=== PATIENT | female | born 1970 | race Caucasian/White ===

== ENCOUNTER 2018-08-15 08:11 | Day surgery (SDC) | payer MEDICAID ==
[2018-08-15] VITALS (12 sets, daily range): BP systolic 91–141; BP diastolic 49–89; PULSE 60–88; RESP 12–23; Ht 157.5 cm; Wt 68.1 kg
[~2018-08-15] VITALS: Ht 157.5 cm; Wt 68.1 kg
[~2018-08-15 08:11] MED LIST: ACETAMINOPHEN 500 MG TAB PO ONE; CEFAZOLIN 2 GM/50 ML (PMX) 50 ML IVPB SCH; DESFLURANE 15 MIN ONE; LIDOCAINE 2% (SDV) 5 ML INJ ONE; SOD CHLORIDE 0.9% 1,000 ML IV ONE
--- NOTE | 2018-08-15 10:11 | PREAC ---
Date/Time of Note Date/Time of Note DATE: 08/15/18 TIME: 10:11 Anesthesia Eval and Record Evaluation Time Pre-Procedure Interview DATE: 08/15/18 TIME: 10:11 Age 48 Sex female NPO: 8 hrs Preoperative diagnosis L breast mass Planned procedure L breast mass excision Past Medical History Past Medical History: None Surgery & Anesthesia Issues No known issue Meds Anticoagulation: No Beta Abel within 24 hr: No Reason Beta Abel not given: Pt. not on B-Abel No Active Prescriptions or Reported Meds Current Medications Cefazolin Sodium/ Dextrose 50 ml @ 100 mls/hr PRE-OP IVPB ; Start 08/15/18 at 06:00; Stop 08/15/18 at 15:00 Sodium Chloride 1,000 ml @ 75 mls/hr [id number] ONCE IV ; Start 08/15/18 at 06:00; Stop 08/15/18 at 19:19 Meds reviewed: Yes Allergies Coded Allergies: No Known Allergy (Unverified , 08/15/18) Allergies Reviewed: Yes Labs/Studies Labs Reviewed: Reviewed by anesthesiologist test: Negative Pre-procedure Exam Airway: Adequate mouth opening, Adequate thyromental dist Mallampati: Mallampati II Teeth: Normal Lung: Normal Heart: Normal ASA Physical Status ASA physical status: 1 Emergency: None Planned Anesthetic General/MAC: LMA Pre-operative Attestations Prior to commencing anesthesia and surgery, the patient was re-evaluated, there was verification of: *The patient's identity *The results of appropriate recent lab work and preoperative vital signs *The above evaluation not changing prior to induction *Anesthetic plan, risk benefits, alternative and complications discussed with patient/family; questions answered; patient/family understands, accepts and wishes to proceed. Financial Advisor Trainee used CARLTON BAHENA August 15, 2018 10:11
[2018-08-15] MEDS ORDERED: FENTAnyl 50 MCG/ML VIAL IV PRN ×2 (10:30)
[2018-08-15] MEDS ORDERED: DIPHENHYDRAMINE 50 MG INJ IV PRN (10:30)
[2018-08-15] MEDS ORDERED: OXYCODONE/ACETAMINOPHEN (5/325) TAB PO PRN ×2 (10:30)
[2018-08-15] MEDS ORDERED: morphine (1 MG/ML) 10ML SYRINGE IV PRN ×2 (10:30)
[2018-08-15] MEDS ORDERED: MEPERIDINE 25 MG INJ IV PRN (10:30)
[2018-08-15] MEDS ORDERED: ONDANSETRON 4 MG INJ IV PRN (10:30)
[2018-08-15] MEDS ORDERED: LABETALOL HCL 20MG INJ IV PRN (10:30)
[2018-08-15] MEDS ORDERED: ALBUTEROL 0.083% (NEB) 2.5 MG/3 ML AMP HHN PRN (10:30)
[2018-08-15] MEDS ORDERED: HYDROmorphONE 1 MG/5 ML IV SYRINGE IV PRN ×3 (10:30)
[2018-08-15] MEDS ORDERED: FAMOTIDINE 20 MG INJ ONE (11:02)
[2018-08-15] MEDS ORDERED: MIDAZOLAM 1 MG/ML 2 ML INJ ONE (11:02)
[2018-08-15] MEDS ORDERED: FENTAnyl 50 MCG/ML VIAL ONE (11:02)
[2018-08-15] MEDS ORDERED: PROPOFOL 40 ML ONE (11:02)
[2018-08-15] MEDS ORDERED: CEFAZOLIN 1 GM INJ ONE (11:03)
[2018-08-15] MEDS ORDERED: ONDANSETRON 4 MG INJ ONE (11:03)
--- NOTE | 2018-08-15 12:17 | SIPON ---
Date/Time of Note Date/Time of Note DATE: 08/15/18 TIME: 12:15 Operative Report Preoperative Diagnosis Left breast lesion Postoperative Diagnosis Same Operation/Procedure Performed Excision of left breast lesion with local skin flap advancement closure Surgeon see signature line bilingual administrative assistant Dr Garcia Anesthesia: general Estimated blood loss: 0 - 10 ml's Transfusion Required none Specimen Left breast lesion Grafts/Implants none Complications none DANNY LUCAS MD August 15, 2018 12:17
--- NOTE | 2018-08-15 12:29 | PAC ---
Date/Time of Note Date/Time of Note DATE: 08/15/18 TIME: 12:28 Post-Anesthesia Notes Post-Anesthesia Note Last documented vital signs Vital Signs Date Temp Pulse Resp B/P (MAP) Pulse Ox O2 O2 Flow FiO2 Time Delivery Rate 08/15/18 98.1 12:26 08/15/18 98.1 68 68 16 17 140/87 99 96 Room 10:40 1223 (104) 95/ Air face 51 mask 4L Activity: WNL Respiratory function: WNL Cardiovascular function: WNL Mental status: Baseline Pain reasonably controlled: Yes Hydration appropriate: Yes Nausea/Vomiting absent: Yes CARLTON BAHENA August 15, 2018 12:29
--- NOTE | 2018-08-15 16:32 | OPR ---
DATE OF OPERATION: 08/15/2018 PREOPERATIVE DIAGNOSIS: Left breast lesion. POSTOPERATIVE DIAGNOSIS: Left breast lesion. OPERATION PERFORMED: Excisional biopsy of left breast lesion, local skin flap advancement closure. ANESTHESIA: General. ANESTHESIOLOGIST: Nurse hair designer, Odilia Ibarra. SURGEON: Marcelino Arreola MD CONSERVATION COORDINATOR: Abhijit Garcia MD INDICATIONS FOR PROCEDURE: The patient is a 48-year-old female who presented with enlarging mass in her left breast with overlying skin changes. She requested excision. She consented and was schedule d for surgery. DESCRIPTION OF PROCEDURE: The patient was brought to the operating theater, placed under general ane sthesia. The left breast was prepped and draped in usual sterile fashion. The lesion was approximat luigi at the 6 o'clock location, approximately 3-4 cm from the nipple-areolar border. An elliptical in cision was made widely around it with 15 blade scalpel including a significant portion of skin. The subcutaneous tissue was then dissected with cautery. The lesion was elevated and transected from the surrounding breast parenchyma. It was removed and sent for pathologic analysis. The wound was irri gated. Residual bleeding was controlled with cautery. Superior and inferior flaps were then created with cautery to facilitate a tension-free closure. Minimal bleeding was then controlled with cauter y, and the skin was then reapproximated with a deep dermal layer of 4-0 Vicryl sutures in interrupted fashion, followed by final skin approximation with 5-0 PDS suture in subcuticular fashion, and benzo in and Steri-Strips were applied. The patient tolerated the procedure well. The estimated blood los s was approximately 10 mL. There were no complications and the patient was transported in stable con dition to the recovery room. Dictated By: MARCELINO ARREOLA MD TL/NTS Conf#: [id number] DID#: [id number]
== END 2018-08-15 14:10 | disposition home or self-care (01) ==
LOC: SDS 08:11
PROVIDERS: ATTEND Surgery Surgical Oncology
DX: L82.1 Other seborrheic keratosis (principal)
CPT/HCPCS: 14000; 19101; 88307; J0690; J2250; J2405; J3010; Z7512; Z7610